=== PATIENT | male | born 1990 | race Two or more races ===

== ENCOUNTER 2023-12-21 13:15 | Outpatient (CLI) | payer SELFPAY ==
[2023-12-21 14:21] VITALS: PULSE 56; RESP 16; O2SAT 96
[2023-12-21 14:29] VITALS: PULSE 122; RESP 22; O2SAT 99
== END 2023-12-21 23:59 | disposition home or self-care (01) ==
LOC: RT 13:15
PROVIDERS: ATTEND Family Medicine
DX: R06.02 Shortness of breath (principal)
CPT/HCPCS: 94010; 94760